=== PATIENT | male | born 1965 ===

== ENCOUNTER 2019-08-15 12:11 | Outpatient (CLI) | payer OTHER, SELFPAY ==
--- NOTE | 2019-08-15 12:24 | MR_ITS ---
WS: [id number] MRI CERVICAL SPINE HISTORY: DDD/ C-SPINE WITH RADICULOPATHY COMPARISON: None available. Very slight straightening of the upper cervical spine at C3-4. Less than 2 mm retrolisthesis of C4. N o fracture or marrow edema. Signal within the cervical cord is normal. Visualized posterior fossa is unremarkable. Craniocervical junction, C1 and C2 relationship, odontoid process and soft tissues are normal. C2-C3: Normal. C3-C4: Small central disc protrusion and mild annular bulging. Disc bulging is slightly asymmetric to the LEFT. Disc contacts the ventral cervical cord and extends into the LEFT foramen. There is mild c entral and LEFT foraminal stenosis. C4-C5: Small foraminal osteophytes. Mild facet arthropathy. There is mild bilateral foraminal stenosi s LEFT greater than RIGHT. C5-C6: Small RIGHT foraminal osteophytes. No significant stenosis. C6-C7: Mild annular disc bulging and osteophytic ridging. Very shallow central disc protrusion. Only mild RIGHT foraminal narrowing. C7-T1: Normal. Paraspinal soft tissue are normal. MR/MR cervical spin wo con* [id number] IMPRESSION: 1. Mild central and LEFT foraminal stenosis at C3-4 due to shallow central dis c protrusion and osteophyte disease. 2. Mild bilateral foraminal narrowing at C4-5 and on the RIGHT at C6-7 due to mild disc osteophyte disease.
== END 2019-08-15 12:12 | disposition home or self-care (01) ==
PROVIDERS: Family Provider Electrodiagnostic Medicine; PCP Electrodiagnostic Medicine; Visit Provider Electrodiagnostic Medicine
DX: M50.10 Cervical disc disorder with radiculopathy, unspecified cervical region (principal); J44.9 Chronic obstructive pulmonary disease, unspecified; M48.02 Spinal stenosis, cervical region
CPT/HCPCS: 72141

== ENCOUNTER → 2019-09-03 07:46 | Outpatient (BNVA) | payer OTHER, SELFPAY | PROVIDERS: Family Provider Electrodiagnostic Medicine; PCP Electrodiagnostic Medicine; Referring Provider Electrodiagnostic Medicine; Visit Provider Psychiatry & Neurology Neurology | DX: G62.9 Polyneuropathy, unspecified (principal); M54.2 Cervicalgia; M79.601 Pain in right arm; M79.602 Pain in left arm | CPT/HCPCS: 95886; 95910 ==

== ENCOUNTER 2019-12-29 08:17 | Outpatient (CLI) | payer OTHER, SELFPAY ==
--- NOTE | 2019-12-29 08:32 | XR_ITS ---
WS: [id number] SHOULDER LEFT TECHNIQUE: 3 views of the left shoulder CLINICAL INFORMATION: SHOULDER PAIN, LEFT, DEGENERATIVE JOINT DISEASE, SHOULDER COMPARISON: None. FINDINGS: Normal acromioclavicular joint. Normal glenohumeral joint. Acromion is normal in appearance. Normal g lenoid. No evidence of acute fracture dislocation. XR/XR shoulder LT min 2V* [id number] IMPRESSION: Normal left shoulder.
== END 2019-12-29 08:18 | disposition home or self-care (01) ==
LOC: WPI 08:21
PROVIDERS: Family Provider Electrodiagnostic Medicine; PCP Electrodiagnostic Medicine; Visit Provider Electrodiagnostic Medicine
DX: M25.512 Pain in left shoulder (principal); G89.29 Other chronic pain; M19.012 Primary osteoarthritis, left shoulder
CPT/HCPCS: 73030

== ENCOUNTER 2020-02-19 10:46 | Outpatient (CLI) | payer OTHER, SELFPAY ==
--- NOTE | 2020-02-19 10:52 | XRR_ITS ---
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 COMPARISON: No relevant prior studies available. FINDINGS: Lungs: Unremarkable. No consolidation. Pleural space: Unremarkable. No pleural effusion. No pneumothorax. Heart/Mediastinum: Unremarkable. No cardiomegaly. Bones/joints: Unremarkable. XR/XR chest 2V* [id number] IMPRESSION: No acute findings.
== END 2020-02-19 10:47 | disposition home or self-care (01) ==
LOC: RAD 10:48
PROVIDERS: Family Provider Electrodiagnostic Medicine; PCP Electrodiagnostic Medicine; Visit Provider Radiology Diagnostic Radiology
DX: J44.9 Chronic obstructive pulmonary disease, unspecified (principal)
CPT/HCPCS: 71046

== ENCOUNTER 2020-07-26 11:07 | Outpatient (CLI) | payer OTHER, SELFPAY ==
--- NOTE | 2020-07-26 11:13 | MR_ITS ---
WS: [id number] MRI LEFT SHOULDER NONCONTRAST TECHNIQUE: Sagittal T2, coronal T1, T2 and proton density imaging. Axial gradient PDE imaging. CLINICAL INFORMATION: LT SHOULDER IMPINGEMENT SYNDROME;CHRONIC LT SHOULDER PAIN COMPARISON: None. FINDINGS: Moderate degenerative arthritis at the AC joint with mild edema. Slight subacromial spurring. Subacro mial space is preserved. Distal supraspinatus is normal. Normal infraspinatus. Normal subscapularis and teres minor. Normal bi ceps labral anchor. Normal biceps tendon in the bicipital groove. Degenerative fraying of the glenoid labrum. Glenoid labrum appears grossly normal. MR/MR shoulder LT wo con* [id number] IMPRESSION: 1. Moderate degenerative arthritis at the AC joint with mild subacromial spurr ing. 2. Rotator cuff is intact. Mild chronic thinning of the rotator cuff. No full- thickness rotator cuff tears. 3. Normal biceps tendon in the bicipital groove. Normal biceps labral anchor. 4. Degenerative fraying of the glenoid labrum which appears grossly unremarkab le.
== END 2020-07-26 11:08 | disposition home or self-care (01) ==
LOC: RADSHAW 11:12
PROVIDERS: Family Provider Electrodiagnostic Medicine; PCP Electrodiagnostic Medicine; Visit Provider Electrodiagnostic Medicine
DX: M75.42 Impingement syndrome of left shoulder (principal); M19.012 Primary osteoarthritis, left shoulder
CPT/HCPCS: 73221

== ENCOUNTER 2021-06-27 14:58 | Outpatient (CLI) | payer OTHER, SELFPAY ==
--- NOTE | 2021-06-27 15:04 | XR_ITS ---
WS: [id number] CHEST 2 VIEWS HISTORY: COPD, SECONDARY TO ASBESTOS EXPOSURE COMPARISON: 02/19/2020 Lungs: Clear with no abnormality. No pleural effusion or pneumothorax. Cardiac size: Normal. Mediastinum/Aorta: Very mild atherosclerosis aorta. Bones: Normal. XR/XR chest 2V* [id number] IMPRESSION: Stable chest, no acute cardiopulmonary disease.
== END 2021-06-27 14:59 | disposition home or self-care (01) ==
PROVIDERS: PCP Electrodiagnostic Medicine
DX: J44.9 Chronic obstructive pulmonary disease, unspecified (principal); Z77.090 Contact with and (suspected) exposure to asbestos
CPT/HCPCS: 71046

== ENCOUNTER 2021-07-13 10:15 | Outpatient (CLI) | payer OTHER, SELFPAY ==
[2021-07-13 10:25] VITALS: BP 145/87; PULSE 92; RESP 16; TEMP 36.7; O2SAT 98; BMI 25.7
[2021-07-13 11:01] VITALS: BP 122/81; PULSE 73; RESP 18; TEMP 36.4; O2SAT 99
[2021-07-13 12:01] VITALS: BP 121/78; BP 121/81; PULSE 72; RESP 18; TEMP 36.8; O2SAT 97
== END 2021-07-13 10:16 | disposition home or self-care (01) ==
LOC: OPS 10:16
PROVIDERS: PCP Electrodiagnostic Medicine; Visit Provider Nurse Practitioner
DX: U07.1 COVID-19 (principal)
CPT/HCPCS: 96365

== ENCOUNTER 2022-02-28 09:36 | Emergency (ER) | payer OTHER, SELFPAY ==
[2022-02-28 09:42] VITALS: BP 111/64; PULSE 103; RESP 18; TEMP 36.6; O2SAT 94; BMI 24.3
--- NOTE | 2022-02-28 09:43 | ECG_ITS ---
[facility] Test Date: 2022-02-28 Pat Name: Mykel Zhong Department: Room: Gender: Male Accountant: : 1965 Requested By: Holger Martinez Order Number: [id number] Katrina MD: Kamla Cheney M.D. Measurements Intervals [place] Rate: 91 P: 76 OR: 160 QRS: 91 QRSD: 84 T: 73 QT: 358 QTc: 441 Interpretive Statements SINUS RHYTHM BORDERLINE RIGHT AXIS DEVIATION [QRS AXIS > 90] LOW QRS VOLTAGE IN PRECORDIAL LEADS [QRS DEFLECTION < 1.0 mV IN CHEST LEADS] SEPTAL MYOCARDIAL INFARCTION , OF INDETERMINATE AGE [40+ ms Q WAVE IN V1/V2] No previous ECG available for comparison Electronically Signed On 02-28-2022 17:59:06 CDT by Kamla Cheney M.D. [id number]
--- NOTE | 2022-02-28 10:01 | CTR_ITS ---
PROCEDURE INFORMATION: Exam: CT Abdomen And Pelvis Without Contrast Exam date and time: 02/28/2022 1:00 PM Age: 56 years old Clinical indication: Abdominal pain; Generalized; Additional info: Abd pain TECHNIQUE: Imaging protocol: Computed tomography of the abdomen and pelvis without contrast. Radiation optimization: All CT scans at this facility use at least one of these dose optimization techniques: automated exposure control; mA and/or kV adjustment per patient size (includes targeted exams where dose is matched to clinical indication); or iterative reconstruction. COMPARISON: CR XR abdomen 1V* [id number] 02/22/2022 12:16 PM RADIATION DOSE METRICS: Total DLP (mGy-cm): 931.33 FINDINGS: Liver: There is a 12 mm benign cyst in the right lobe of the liver. Gallbladder and bile ducts: Normal. No calcified stones. No ductal dilation. Pancreas: Normal. No ductal dilation. Spleen: Normal. No splenomegaly. Adrenal glands: Normal. No mass. Kidneys and ureters: IV contrast is present in the renal collecting systems and urinary bladder. There is no hydronephrosis. No renal masses are seen. Stomach and bowel: There is diffuse mural thickening of the colon especially of the descending and sigmoid colon with hazy infiltration of the adjacent fat. This is consistent with a colitis. This could be infectious in nature. There is fluid in nondilated loops of small bowel and right-sided colon consistent with enteritis. No evidence of bowel obstruction. There are scattered diverticuli in the sigmoid colon. Appendix: No evidence of appendicitis. Intraperitoneal space: Unremarkable. No free air. No significant fluid collection. Vasculature: There is calcification of the abdominal aorta. No aneurysm. Lymph nodes: Unremarkable. No enlarged lymph nodes. Urinary bladder: Urinary bladder is unremarkable.. Reproductive: There is a 13 cm hydrocele in the left hemiscrotum with a 3 mm scrotal katlin. Bones/joints: Unremarkable. No acute fracture. Soft tissues: Unremarkable. CT/CT abdomen pelvis wo con [id number] IMPRESSION: 1. There is diffuse mural thickening of the colon especially of the descending and sigmoid colon and fluid in the proximal colon consistent with a colitis. This may be infectious in nature. 2. No evidence of obstruction or significant bowel dilatation.
[2022-02-28 10:16] LABS: Basophils # 0.1 10^3/uL (0.0-0.1); Basophils % 0.5 %; Eosinophils % 0.2 %; Hematocrit 37.5 % (42.0-52.0); Hemoglobin 12.8 g/dL (11.7-16.6); Lymphocytes # 1.1 10^3/uL (0.8-4.8); Lymphocytes % 5.4 %; Mean Corpuscular HGB Conc 34.1 g/dL (30.0-36.0); Mean Corpuscular Hemoglobin 31.9 pg (28.0-34.0); Mean Corpuscular Volume 93.5 fl (80-94); Mean Platelet Volume 9.5 fL (7.4-10.4); Monocytes # 2.7 10^3/uL (0.2-0.9); Monocytes % 13.9 %; Neutrophils # 15.36 10^3/uL (1.8-7.7); Nucleated Red Blood Cells % 0 %; Platelet Count 552 10^3/cmm (130-400); Red Blood Count 4.01 10^6/uL (4.1-5.3); Red Cell Distribution Width 13.2 % (12.1-15.1); White Blood Count 19.4 10^3/uL (4.0-10.0)
[2022-02-28 10:40] LABS: Alanine Aminotransferase 27 U/L (0-41); Albumin Level 3.1 g/dL (3.5-5.2); Alkaline Phosphatase 126 U/L (40-130); Anion Gap 20.7 (5-19); Aspartate Amino Transferase 20 U/L (0-40); Blood Urea Nitrogen 12 mg/dL (6-20); Calcium 8.5 mg/dL (8.5-10.5); Carbon Dioxide 21 mmol/L (22-29); Chloride 95 mmol/L (98-107); Creatinine Clr Calc Pharmacy 96.5949; Globulin 3.9 g/dL (1.3-4.6); Glucose 125 mg/dL (65-115); Lipase 15 U/L (13-60); Osmolality Calculated 277 mOsm/kg (285-295); Potassium 3.7 mmol/L (3.5-5.1); Sodium 133 mmol/L (136-145); Total Bilirubin 0.3 mg/dL (0.15-1.2)
[2022-02-28 11:22] VITALS: RESP 18; O2SAT 96
[2022-02-28] MEDS: morphine 4 mg/mL SDV 1 mL IVP (11:22)
[2022-02-28] MEDS: ondansetron 2 mg/ML SDV 2 mL 4 MG IVP (11:23)
--- NOTE | 2022-02-28 11:24 | W.ED.ABDPA2 ---
HPI - Abdominal Pain General: Chief Complaint: Abdominal Pain Stated Complaint: abdomen pain Time Seen by Provider: 02/28/22 09:42 Source: patient Mode of arrival: ambulatory Limitations: no limitations History of Present Illness: 56-year-old male presents emergency room with a 8 to 9-day history of left lower quadrant abdominal pain with nausea and vomiting. Began running fever overnight has sweats and chills and increased left lower quadrant pain. He was seen last week by his primary care doctor and started on Augmentin for presumed diverticulitis. He has no dysuria urgency or frequency is not any hematochezia or melena. He denies any hematuria. No chest pain or shortness of breath. MD elicited complaint: abdominal pain Pertinent past history: diverticulitis Onset (ago): day(s) (02-21) Pain Consistency: constant Location: LLQ Severity: moderate Quality: stabbing Radiation: none Migration to: no migration Exacerbating factors: nothing Relieving factors: nothing Associated Symptoms: Reports change in stool character, chills, GI cramping, diarrhea, fever(s), nausea, poor appetite and vomiting; Denies anorexia, belching, bloating, change in bowel habits, coffee ground emesis, constipation, dyspepsia, dysuria, excessive flatus, heartburn, hematochezia, hematuria, hematemesis, fecal incontinence, loose stools, melena and syncope Review of Systems Const: Reports: fever(s), chills, fatigue and malaise ENMT: Denies: throat pain, ear or mastoid pain, nasal discharge or nasal congestion Card: Reports: chest pain; Denies: syncope Resp: Denies: dyspnea, productive cough or non-productive cough GI: Reports: abdominal pain, nausea, vomiting, diarrhea, GI cramping and change in stool character; Denies: hematemesis, coffee ground emesis, heartburn, constipation, bloating, belching, excessive flatus, fecal incontinence, change in bowel habits, hematochezia or melena : Denies: flank pain, difficulty urinating, dysuria, urinary frequency, urinary urgency or hematuria Skin/Breast: Denies: rash or pruritus PFSH ED PFSH: Medical History (Updated 02/28/22 @ 14:03 by Holger Quick DO) Carpal tunnel syndrome, bilateral upper limbs Diverticulitis Social History (Updated 09/06/19 @ 14:55 by Cornelia Luciano LPN) Smoking and tobacco status: current every day smoker Alcohol intake: never Physical Exam Const: COMMON NORMALS: no acute distress GENERAL APPEARANCE: cooperative and comfortable ORIENTATION/CONSCIOUSNESS: Yes awake, Yes oriented to person, Yes oriented to place and Yes oriented to time HENMT: COMMON NORMALS: normocephalic, atraumatic, hearing grossly normal bilaterally, external ears normal, EAC's normal, TM's normal bilaterally and Normal nasal mucous membranes and turbinates present HEAD & SCALP: normocephalic and atraumatic NOSE: Normal nasal mucous membranes and turbinates present EXTERNAL EAR: Yes external ears normal EXTERNAL AUDITORY CANAL: EAC's normal TYMPANIC MEMBRANE: TM's normal bilaterally Eye: COMMON NORMALS: Equal, round and reactive pupils present, EOMs intact bilaterally, conjunctivae normal and no scleral icterus CONJUNCTIVA: Yes conjunctivae normal PUPIL: Yes Equal, round and reactive pupils present Neck/C-Spine: COMMON NORMALS: full ROM, no lymphadenopathy, supple and no JVD Lymph: LYMPHATIC: no lymphadenopathy noted and no lymphedema noted Resp: COMMON NORMALS: normal respiratory effort, No retractions, No use of accessory muscles and clear to auscultation bilaterally AUSCULTATION: clear to auscultation bilaterally Cardio: COMMON NORMALS: no JVD, regular rate, regular rhythm and No murmurs present (Cardio) RATE: regular rate RHYTHM: regular rhythm GI: COMMON NORMALS: No hepatosplenomegaly present AUSCULTATION: Yes normoactive bowel sounds PALPATION: Yes Tenderness to palpation present (GI) Details: LLQ, No Guarding due to palpation present (GI) and Yes No hepatosplenomegaly present Extremity: COMMON NORMALS: normal to inspection, capillary refill normal, no clubbing, cyanosis or edema, no calf tenderness and no pedal edema Neuro: SENSORIUM/ORIENTATION: Yes oriented to person, Yes oriented to place and Yes oriented to time Skin: COMMON NORMALS: no rashes or lesions noted GENERAL SKIN EXAM: no rashes or lesions noted Course Vital Signs: Vital signs: Vital Signs Temperature 97.8 F 02/28/22 09:42 Pulse Rate 103 H 02/28/22 09:42 Respiratory Rate 18 02/28/22 11:22 Blood Pressure 111/64 02/28/22 09:42 Pulse Oximetry 96 02/28/22 11:22 MDM - Abdominal Pain Medical Decision Making CT shows evidence of diverticulitis with no pneumatosis abscess or perforation. We will switch from Augmentin to Cipro and Flagyl pain and nausea medications given clear liquid diet for 24 to 48 hours and advance as tolerated follow-up with a primary care return if is significant worsening. Medical Records I reviewed the patient's medical records. Lab Data I reviewed the patient's lab results. : 02/28/22 10:10 02/28/22 10:10 Labs/Radiology: Radiology Impressions Abdomen/Pelvis CT 02/28/22 10:01 IMPRESSION: 1. There is diffuse mural thickening of the colon especially of the descending and sigmoid colon and fluid in the proximal colon consistent with a colitis. This may be infectious in nature. 2. No evidence of obstruction or significant bowel dilatation. Laboratory Results WBC 19.4 10^3/uL (4.0-10.0) H 02/28/22 10:10 RBC 4.01 10^6/uL (4.1-5.3) L 02/28/22 10:10 Hgb 12.8 g/dL (11.7-16.6) 02/28/22 10:10 Hct 37.5 % (42.0-52.0) L 02/28/22 10:10 MCV 93.5 fl (80-94) 02/28/22 10:10 MCH 31.9 pg (28.0-34.0) 02/28/22 10:10 MCHC 34.1 g/dL (30.0-36.0) 02/28/22 10:10 RDW 13.2 % (12.1-15.1) 02/28/22 10:10 Plt Count 552 10^3/cmm (130-400) H 02/28/22 10:10 MPV 9.5 fL (7.4-10.4) 02/28/22 10:10 Neut % (Auto) 79.0 % 02/28/22 10:10 Lymph % (Auto) 5.4 % 02/28/22 10:10 Grant % (Auto) 13.9 % 02/28/22 10:10 Eos % (Auto) 0.2 % 02/28/22 10:10 Baso % (Auto) 0.5 % 02/28/22 10:10 Neut # (Auto) 15.36 10^3/uL (1.8-7.7) H 02/28/22 10:10 Lymph # (Auto) 1.1 10^3/uL (0.8-4.8) 02/28/22 10:10 Grant # (Auto) 2.7 10^3/uL (0.2-0.9) H 02/28/22 10:10 Eos # (Auto) 0.0 10^3/uL (0.0-0.8) 02/28/22 10:10 Baso # (Auto) 0.1 10^3/uL (0.0-0.1) 02/28/22 10:10 Nucleated RBC % (auto) 0 % 02/28/22 10:10 Nucleated RBCs # 0.0 /100WBC 02/28/22 10:10 Sodium 133 mmol/L (136-145) L 02/28/22 10:10 Potassium 3.7 mmol/L (3.5-5.1) 02/28/22 10:10 Chloride 95 mmol/L (98-107) L 02/28/22 10:10 Carbon Dioxide 21 mmol/L (22-29) L 02/28/22 10:10 Anion Gap 20.7 (5-19) H 02/28/22 10:10 BUN 12 mg/dL (6-20) 02/28/22 10:10 Creatinine 1.0 mg/dL (0.7-1.2) 02/28/22 10:10 GFR Calculation 77.0 mL/min (90-130) L 02/28/22 10:10 Glucose 125 mg/dL (65-115) H 02/28/22 10:10 Calculated Osmolality 277 mOsm/kg (285-295) L 02/28/22 10:10 Calcium 8.5 mg/dL (8.5-10.5) 02/28/22 10:10 Total Bilirubin 0.3 mg/dL (0.15-1.2) 02/28/22 10:10 AST 20 U/L (0-40) 02/28/22 10:10 ALT 27 U/L (0-41) 02/28/22 10:10 Alkaline Phosphatase 126 U/L (40-130) 02/28/22 10:10 Total Protein 7.0 g/dL (6.6-8.7) 02/28/22 10:10 Albumin 3.1 g/dL (3.5-5.2) L 02/28/22 10:10 Globulin 3.9 g/dL (1.3-4.6) 02/28/22 10:10 Lipase 15 U/L (13-60) 02/28/22 10:10 Discharge Plan Discharge Patient Disposition: Home Clinical Impression: Diverticulitis Condition: Stable Prescriptions: New Cipro 500 mg tablet 500 mg PO BID Qty: 20 0RF metronidazole 500 mg tablet 500 mg PO BID 10 Days Qty: 20 0RF hydrocodone-acetaminophen 5-325 mg tablet 1 tab PO Q6H PRN (Reason: pain) Qty: 20 0RF promethazine 25 mg tablet 25 mg PO Q6H PRN (Reason: nausea and vomiting) Qty: 20 0RF No Action tramadol 50 mg tablet 50 mg PO TID PRN (Reason: Pain) acetaminophen [Tylenol] 325 mg Tablet 325 mg PO QID PRN (Reason: Fever) montelukast 10 mg Tablet 10 mg PO DAILY Advair Diskus 250-50 mcg/dose Blister With Device 1 inh INHALATION BID ibuprofen 800 mg Tablet 800 mg PO Q6H PRN (Reason: Pain) amlodipine 10 mg tablet 10 mg PO DAILY ProAir HFA 90 mcg/actuation HFA aerosol inhaler 1 inh INHALATION Q6H PRN (Reason: Shortness Of Breath) valsartan 160 mg tablet 160 mg PO DAILY Discharge Orders: Discharge ED (Routine); Ordered 02/28/22 Ordered By: Holger Quick Referrals: Asad Nichols, [Primary Care Provider] - Discharge Diet: Usual diet Discharge Activity: Increase activity as tolerated Patient Instructions: Opioid Safety Activity Restrictions/Additional Instructions: Clear liquid diet for the next 2 to 3 days advance diet as tolerated. Stop the Augmentin and start ciprofloxacin and metronidazole. Recheck with Dr. Nichols within 1 week. Coding Level of Care Code ED Securities Underwriter for Marti Fwd Exam Comprehensive
[2022-02-28] MEDS: iohexol 350 mg/mL 100 mL Btl IV (11:44)
== END 2022-02-28 14:17 | disposition home or self-care (01) ==
PROVIDERS: Emergency Provider Family Medicine; PCP Electrodiagnostic Medicine
DX: K57.92 Diverticulitis of intestine, part unspecified, without perforation or abscess without bleeding (principal); F17.210 Nicotine dependence, cigarettes, uncomplicated
CPT/HCPCS: 36415; 74176; 74177; 80053; 83690; 85025; 87040; 93005; 96374; 96375; 99285; J2270; J2405; Q9967